=== PATIENT | male | born 1955 | race Caucasian/White ===

== ENCOUNTER 2019-09-10 23:50 | Emergency (ER) | payer BC ==
[2019-09-10] MEDS ORDERED: 0.9 % SODIUM CHLORIDE 1,000 ML IV ONE (23:52)
[2019-09-10] MEDS ORDERED: KETOROLAC TROMETHAMINE 30 MG/1ML VIAL IV ONE (23:59)
--- NOTE | 2019-09-10 23:59 | ED Physician Documentation ---
General Adult - HISTORIAN Historian: patient - HPI Stated Complaint: left flank pain Chief Complaint: Flank Pain Onset: hours (10) Timing: still present Severity: severe (07/27) Further Comments: yes (He states about 3 pm he started to have left flank pain and he has had increasing pain since. He is not sure of any visable blood in his urine. he states "I have not had a pee in a while" but he has had urination in the last few hours. Nausea that was treated by EMS NO fever. NO injury NO abdominal pain.) - ROS CONST: no problems EYES/ENT: none CVS/RESP: none GI/: nausea, other (left flank pain ) - PAST HX Past History: other (kidney stone ) Immunizations: UTD Allergies/Adverse Reactions: Allergies Allergy/AdvReac Type Severity Reaction Status Date / Time No Known Allergies Allergy Verified 09/11/19 00:05 Home Medications: Ambulatory Orders Medication Instructions Recorded NK 09/11/19 - SOCIAL HX Smoking History: cigarettes Alcohol Use: none Drug Use: none - FAMILY HX Family History: No - REVIEWED ASSESSMENTS Nursing Assessment Reviewed: Yes Vitals Reviewed: Yes Progress - Progress Progress: 0016: he did void without difficulty or pain. Sitting on bed legs crossed with no signs of distress DG 0035: states pain has resolved DG ED Results Lab/Radiology - Orders Orders: ED Orders Category Date Time Status 0.9 % Sodium Chloride [Normal Saline] 1,000 ml Med 09/10/19 23:52 Discontinued IV .STK-MED General Adult Physical Exam - PHYSICAL EXAM GENERAL APPEARANCE: no distress EENT: eye inspection normal, no signs of dehydration NECK: normal inspection RESPIRATORY: no resp distress, chest non-tender, breath sounds normal CVS: reg rate & rhythm, heart sounds normal ABDOMEN: soft, normal bowel sounds, no distension BACK: normal inspection, CVA tenderness (L) SKIN: warm/dry, normal color EXTREMITIES: non-tender, normal range of motion, no evidence of injury, no edema NEURO: oriented X3 Discharge Clincal Impression: Diverticulitis, Kidney stone on left side Comments: 1. Cipro 500 mg take 1 by mouth twice per day x 14 days 2. Flagyl 500 mg take 1 by mouth every 8 hours x 14 days 3. Zofran 4 mg take 1 by mouth every 8 hours as needed for nausea 4. Flomax 0.4 mg take 1 by mouth every day 5. INCREASE fluids 6. See PCP in 2 days 7. Return to ER for any increased concerns Condition: Stable Disposition: HOME, SELF-CARE Decision to Admit: NO Date of Decison to Admit: 09/11/19 Decision Time: 01:05
[2019-09-11] MEDS ORDERED: 0.9 % SODIUM CHLORIDE 1,000 ML IV ONE
[2019-09-11 00:03] LABS: BASOPHILS % 0.4 % (0.0-1.5); NEUTROPHILS # 9.1 # k/uL (1.4-7.7)
[2019-09-11 00:13] LABS: eGFR (Non-African) > 60
[2019-09-11] MEDS ORDERED: metroNIDAZOLE 500 MG TABLET PO ONE (01:00)
[2019-09-11] MEDS ORDERED: TAMSULOSIN HCL 0.4 MG CAP.ER.24H PO ONE (01:00)
[2019-09-11 01:35] VITALS: BP 153/64
[2019-09-11 07:02] LABS: OCCULT BLOOD,URINE 1+ (NEGATIVE); UROBILINOGEN URINE 0.2 Eu (0.2-1.0)
--- NOTE | 2019-09-14 13:16 | Diagnostic Imaging Report ---
[facility] [place] [id number] [facility] [id number] Patient Name: GORDO PAULINO Referring Physician: Bethany Jansen Date of : 1955 Radiologist: Gender: Brandi Date of Service: 09/11/2019 Exam Requested: CT ABD PELVIS W/O CO Computed tomography abdomen pelvis without contrast History: Left flank pain Findings: Transverse abdomen and pelvis sections are obtained without contrast revealing coronary artery calcification, partial gallbladder contraction, 2 mm right renal stone, mild multilevel lumbar spondylosis, and descending colon diverticulosis. A 3 mm left renal stone, moderate left hydroureteronephrosis, and left perinephric stranding are observed. The pancreas, adrenals, liver, spleen, and lung bases are normal. There is minimal inflammation adjacent to a proximal descending colon diverticulum on axial image 46. Pelvic sections reveal sigmoid diverticulosis, normal appendix, and 3 mm distal left ureteral stone. The prostate is minimally enlarged. The urinary bladder is empty. Seminal vesicles are normal. Impression: 1. 3 mm distal left ureteral stone with mild to moderate obstructive uropathy. 2. Single small bilateral intrarenal stones. 3. Left colonic diverticulosis and mild proximal descending colon diverticulitis. 4. Coronary artery calcifications, lumbar spondylosis, and minimal prostate enlargement.
== END 2019-09-11 01:23 | disposition home or self-care (01) ==
LOC: ED 23:50
DX: K57.92 Diverticulitis of intestine, part unspecified, without perforation or abscess without bleeding (principal); N20.0 Calculus of kidney
CPT/HCPCS: 74176; 80053; 81002; 85025; 96361; 96374; 99283; 99284; J1885; J7030; Q9967